=== PATIENT | male | born 1930 | race Caucasian/White ===

== ENCOUNTER 2021-05-21 09:45 | Emergency (ER) | payer OTHER ==
--- OUTSIDE RECORDS SUMMARY | 2021-05-21 09:47 | XMS REPORT | Continuity of Care Document ---
:1930 Author Organization [facility] t Address [address] [place] [address] Care Team Providers Name Role Phone Attending Clinician Unavailable MD SHAHEEN Attending Clinician Unavailable MARLEEN Attending Clinician Unavailable ESSENCE Attending Clinician Unavailable MD SCOUT Attending Clinician Unavailable LORRAINE Attending Clinician Unavailable MARIJA Attending Clinician Unavailable MD CICI Attending Clinician Unavailable ALYSSA Attending Clinician Unavailable CONSTANCE Attending Clinician Unavailable NJ Attending Clinician Unavailable JOIE Attending Clinician Unavailable RASHID Attending Clinician Unavailable Admitting Clinician Unavailable MD SUMIT SALAS Admitting Clinician Unavailable CHIP Admitting Clinician Unavailable Admitting Clinician Unavailable MD CICI Admitting Clinician Unavailable MARGI Admitting Clinician Unavailable Problems This patient has no known problems. Allergies, Adverse Reactions, Alerts This patient has no known allergies or adverse reactions. Medications This patient has no known medications. Procedures This patient has no known procedures. Encounters Start End Encounter Admission Attending Care Care Encounter Source Date/Time Date/Time Type Type Clinicians Facility Department ID 2021-05-14 2021-05-17 [place] [id number] [place] 00:00:00 00:00:00 SIDRAH 872 Method i 2021-05-13 2021-05-13 Emergency RIVENES, [place] [id number] [place] 00:00:00 00:00:00 CARLOS 036 Method i 2021-05-05 2021-05-12 Inpatient LAEEQ, [facility] [id number] [place] 00:00:00 00:00:00 JACQUELINE 274 Method i 2021-04-20 2021-04-20 Outpatient [facility] [id number] [place] 00:00:00 00:00:00 RENATO 241 Method i 2021-04-20 2021-04-20 Outpatient PRATH, [facility] [id number] [place] 00:00:00 00:00:00 RENATO 877 Method i 2021-04-13 2021-04-17 Inpatient NANGIA, [facility] [id number] [place] 00:00:00 00:00:00 CHIP 733 Method i 2021-03-29 2021-03-29 Outpatient SAIKIA, [facility] [id number] [place] 00:00:00 00:00:00 DAVID 550 [facility] [place] 2021-03-25 2021-03-25 Outpatient [facility] [id number] [place] 00:00:00 00:00:00 951 Method i 2021-03-22 2021-03-22 Outpatient CONSTANCE, [facility] [id number] [place] 00:00:00 00:00:00 BHUMIKA 589 Method i 2021-03-10 2021-03-18 Inpatient LAEEQ, [facility] 064 [id number] [place] 00:00:00 00:00:00 JACQUELINE 870 Method i 2021-02-20 2021-02-21 Emergency GUHAROY, [facility] [id number] [place] 00:00:00 00:00:00 RAJEEB 178 Method i 2021-01-26 2021-01-26 Outpatient SAIKIA, [facility] [id number] [place] 00:00:00 00:00:00 DAVID 589 Meth[address] [place] 2020-09-18 2020-09-18 Outpatient SAIKIA, [facility] [id number] [place] 00:00:00 00:00:00 DAVID 079 Metho di 2020-08-12 2020-08-12 Outpatient SAIKIA, [facility] [id number] [place] 00:00:00 00:00:00 DAVID 551 Metho di 2020-05-08 2020-05-08 Outpatient SAIKIA, [facility] [id number] [place] 00:00:00 00:00:00 DAVID 294 Metho di 2020-05-07 2020-05-07 Outpatient LIMAR-TROUT [facility] [id number] [place] 00:00:00 00:00:00 MAN, 781 Method i FALANDA 2020-04-27 2020-04-27 Outpatient SAIKIA, [facility] [id number] [place] 00:00:00 00:00:[address] DAVDI [address] 2020-04-27 2020-04-27 Outpatient SAIKIA, [facility] [id number] [place] 00:00:00 00:00:00 DAVID 957 Metho di 2020-04-27 2020-04-27 Outpatient SAIKIA, [facility] [id number] [place] 00:00:00 00:00:00 DAVID 953 Metho di 2020-04-27 2020-04-27 Outpatient SAIKIA, [facility] [id number] [place] 00:00:00 00:00:00 DAVID 966 Metho di 2020-04-27 2020-04-27 Outpatient SAIKIA, [facility] [id number] [place] 00:00:00 00:00:00 DAVID 955 Metho di 2020-04-27 2020-04-27 Outpatient SAIKIA, [facility] [id number] [place] 00:00:00 00:00:00 DAVID 962 Metho di 2020-03-27 2020-03-27 Outpatient SAIKIA, [facility] [id number] [place] 00:00:00 00:00:00 DAVID 236 Metho di 2020-03-03 2020-03-03 Outpatient LIMAR-TROUT [facility] [id number] [place] 00:00:00 00:00:00 MAN, 096 Method i FALANDA 2020-01-29 2020-01-29 Outpatient LIMAR-TROUT [facility] [id number] [place] 00:00:00 00:00:00 MAN, 767 Method i FALANDA 2020-01-23 2020-01-23 Outpatient LIMAR-TROUT [facility] [id number] [place] 00:00:00 00:00:00 MAN, 122 Method i FALANDA 2019-03-18 2019-03-18 Outpatient ZO MIKE [facility] [id number] [place] 00:00:00 00:00:[address] Results Test Description Test Time Test Comments Results Result Comments Source SARS-CoV-2 (COVID-19) RNA [Presence] in Respiratory sp ecimen by 2021-05-15 06:34:56 DIANA with probe detection Test Item Value Reference Range Interpretation Comme nts SARS-CoV-2 (COVID-19) RNA [Presence] in Respiratory Not detected No t-Detected specimen by DIANA with probe detection (test code = 92400-2) Whether patient is employed in a healthcare setting (test code = 00809-3) Whether the patient has symptoms related to condition of interest (test code = 24248-6) Patient was hospitalized because of this condition (test code = 86965-9) Whether the patient was admitted to intensive care unit (ICU) for condition of interest (test code = 54193-5) Whether patient resides in a congregate care setting (test code = 57481-5) SARS-CoV-2 (COVID-19) RNA [Presence] in Respiratory specimen by DIANA with probe [id number] 08:41:34 Test Item Value Reference Range Interpretation Comments SARS-CoV-2 (COVID-19) RNA Not detected Not-Detected [Presence] in Respiratory specimen by DIANA with probe detection (test code = 50807-4) Whether patient is employed in a healthcare setting (test code = 79166-2) Whether the patient has symptoms related to condition of interest (test code = 94813-1) Patient was hospitalized because of this condition (test code = 52210-4) Whether the patient was admitted to intensive care unit (ICU) for condition of interest (test code = 33080-7) Whether patient resides in a congregate care setting (test code = 95668-8) SARS-CoV-2 (COVID-19) RNA [Presence] in Respiratory specimen by DIANA with probe [id number] 20:35:23 Test Item Value Reference Range Interpretation Comments SARS-CoV-2 (COVID-19) RNA Not detected Not-Detected [Presence] in Respiratory specimen by DIANA with probe detection (test code = 09038-4) Whether patient is employed in a healthcare setting (test code = 55283-3) Whether the patient has symptoms related to condition of interest (test code = 75470-9) Patient was hospitalized because of this condition (test code = 97040-8) Whether the patient was admitted to intensive care unit (ICU) for condition of interest (test code = 23895-4) Whether patient resides in a congregate care setting (test code = 56628-7) SARS-CoV-2 (COVID-19) RNA [Presence] in Respiratory specimen by DIANA with probe [id number] 01:19:14 Test Item Value Reference Range Interpretation Comments SARS-CoV-2 (COVID-19) RNA Not detected Not-Detected [Presence] in Respiratory specimen by DIANA with probe detection (test code = 83881-9) Whether patient is employed in a healthcare setting (test code = 50616-3) Whether the patient has symptoms related to condition of interest (test code = 05211-8) Patient was hospitalized because of this condition (test code = 28330-5) Whether the patient was admitted to intensive care unit (ICU) for condition of interest (test code = 80247-8) Whether patient resides in a congregate care setting (test code = 64126-9)
[2021-05-21 14:35] LABS: Absolute Lymphocytes (CBC) 1.7 K/uL (0.7-4.9); Hematocrit 29.1 % (39.6-49.0); Lymphocytes % 14.9 % (15.3-44.8); MPV 7.2 fL (7.6-11.3); RBC Red Blood Cell Count 3.43 M/uL (4.33-5.43)
[2021-05-21 14:39] LABS: Protime INR 1.14
[2021-05-21 14:53] LABS: Potassium 4.3 mmol/L (3.5-5.1)
--- NOTE | 2021-05-21 19:44 | RAD REPORT ---
EXAM DESCRIPTION: RAD - Chest Single View - 05/21/2021 7:12 pm CLINICAL HISTORY: DYSPNEA COMPARISON: December 2012 TECHNIQUE: AP portable chest image was obtained 05/21/2021 7:12 pm . FINDINGS: No focal mass or consolidation. Interstitial markings are slightly more prominent than the prior study. This is probably progressive interstitial disease over this long interval. Minimal trell a or infiltrate is possible. Sternotomy wires and left atrial appendage closure device have been placed since the prior study. Hea rt and vasculature are normal. No measurable pleural effusion and no pneumothorax. No acute bony abno rmality seen. No acute aortic findings suspected. IMPRESSION: No focal lung parenchymal process. No significant failure or volume overload. Interstitial markings are slightly more pronounced than seen in 2013 probably chronic progressive dis ease. Minimal edema or infiltrate cannot be excluded.
[2021-05-21 22:17] LABS: NT PRO-BNP 3699 pg/mL (<450); Troponin (Emerg Dept Use Only) < 0.02 ng/mL (0.0-0.045)
[2021-05-21 22:36] LABS: SARS-COV-2 RT PCR NEGATIVE (NEGATIVE)
--- NOTE | 2021-05-21 23:44 | EDPHYS ---
Physician Documentation [facility] Name: Ramu Gamboa Age: 89 yrs Sex: Male : 1930 Arrival Date: 05/21/2021 Time: 09:52 Bed 6 Private MD: ED Physician Osorio Vu HPI: 05/21 18:58 This 89 yrs old Male presents to ER via Wheelchair with complaints of Shortness of rn breath, Lethargic- Cancer PT. 18:58 Family reports patient with history of bladder cancer with daily bladder irrigation rn that has blood in it, this has been an ongoing thing, day before Jodie required a blood transfusion for this, and states he is getting tired and fatigued similar to Jodie Hernandez. They are here to recheck his hemoglobin. Also reports increased shortness of breath over the last week.. Onset: The symptoms/episode began/occurred 1 week(s) ago. Severity of symptoms: At their worst the symptoms were moderate in the emergency department the symptoms are unchanged. The patient has experienced a previous episode. The patient has been recently seen by a physician:. Historical: - Allergies: 11:02 Darvon; eo2 - PMHx: 11:02 Hypertensive disorder; bladder cancer; TIA; eo2 - PSHx: 11:02 triple bypass; eo2 - Immunization history:: Adult Immunizations up to date, Client reports having NOT received the Covid vaccine. Flu vaccine is not up to date. - Social history:: Smoking status: Smoking status: Patient denies any tobacco usage or history of. - Family history:: not pertinent. - Hospitalizations: : Patient was recently seen at. ROS: 18:58 Constitutional: Negative for fever, chills Eyes: Negative for injury, pain, redness, rn and discharge, Cardiovascular: Negative for chest pain, palpitations, and edema, Respiratory: Positive for shortness of breath Abdomen/GI: Negative for abdominal pain, nausea, vomiting, diarrhea, and constipation, : Positive for hematuria and indwelling Roth catheter MS/Extremity: Negative for injury and deformity, Skin: Negative for injury, rash, and discoloration, Neuro: Positive for generalized weakness Exam: 18:58 Constitutional: Thin male, no acute distress with mild tachypnea Head/Face: rn Normocephalic, atraumatic. Eyes: Periorbital areas with no swelling, redness, or edema. ENT: Dry mucous membranes, no stridor Cardiovascular: Regular rate and rhythm. No pulse deficits. Respiratory: Mild tachypnea, no retractions Abdomen/GI: Soft, nontender Skin: Warm, dry, no cellulitis MS/ Extremity: Pulses equal, no cyanosis. Neurovascular intact. Full, normal range of motion. Equal circumference. Neuro: Awake and alert, GCS 15, moves all 4 extremities with equal strength, sensation intact. Vital Signs: 10:55 BP 130 / 48; Pulse 57; Resp 15; Temp 97.9; Pulse Ox 96% ; Weight 63.5 kg; Height 5 ft. eo2 8 in. (172.72 cm); Pain 0/10; 18:50 BP 162 / 64; Pulse 68; Resp 15; Temp 98.0; Pulse Ox 100% ; jl7 10:55 Body Mass Index 21.29 (63.50 kg, 172.72 cm) eo2 MDM: 18:18 Patient medically screened. rn 19:05 Transition of care: After a detail discussion of the patient's case, care is rn transferred to Osorio Vu MD. 23:36 Differential Diagnosis CHF exacerbation, pneumonia, viral syndrome. Data reviewed: [facility] vital signs, nurses notes, old medical records, lab test result(s), cardiac enzymes, CBC, electrolytes, urinalysis, EKG, radiologic studies, plain films. Data interpreted: Pulse oximetry: on room air is 100 %. Interpretation: normal. Counseling: I had a detailed discussion with the patient and/or guardian regarding: the historical points, exam findings, and any diagnostic results supporting the discharge/admit diagnosis, the presence of at least one elevated blood pressure reading (>120/80) during this emergency department visit, lab results, radiology results, the need for further work-up and treatment in the hospital. Response to treatment: the patient's symptoms have resolved after treatment, the patient's blood pressure is in an acceptable range, mental status has returned to baseline, the patient no longer shows bradycardia, the patient is not short of breath, the patient is not tachycardic, the patient's pain is gone, the patient's temperature has normalized. Refusal of service: The patient/guardian displays adequate decision making capability and despite a detailed discussion of alternatives, benefits, risks, and consequences refuses: CT Scan, Medications. ED course: Feels better, no acute distress, vital signs stable, no focal neurological deficits. No chest pain, shortness of breath, headache, nausea, vomiting, dizziness, numbness/tingling, lethargy, or weakness. Discussed all test results and findings with the patient recommended for testing including possible CT scans, medication, and admission for observation. Patient declined admission and request to be discharged from the ED at this time and will leave AGAINST MEDICAL ADVICE. Explained possibility of permanent disability and/or if serious condition is present and goes untreated. He verbalized that he understood this information is presented. Will follow up with his doctor in the next 2 days but agrees to return to ED if symptoms worsen or other urgent concerns.. 05/21 11:54 Order name: CBC with Diff; Complete Time: 16:18 05/21 11:54 Order name: Basic Metabolic Panel; Complete Time: 16:18 05/21 11:54 Order name: Protime (+inr); Complete Time: 16:18 05/21 11:54 Order name: Ptt, Activated; Complete Time: 16:18 05/21 11:54 Order name: IV Start; Complete Time: 14:47 05/21 18:37 Order name: Troponin (emerg Dept Use Only); Complete Time: 22:50 05/21 18:37 Order name: BNP; Complete Time: 22:50 05/21 18:37 Order name: Procalcitonin; Complete Time: 22:50 05/21 18:37 Order name: Lactate; Complete Time: 22:50 05/21 18:37 Order name: XRAY Chest (1 view); Complete Time: 19:59 05/21 18:37 Order name: COVID-19/FLU A+B (Document "Date of Onset" if Symptomatic); Complete Time: rn 22:50 05/21 23:09 Order name: EKG; Complete Time: 23:09 [facility] 05/21 23:09 Order name: EKG - Nurse/Tech [facility] Administered Medications: No medications were administered Disposition Summary: 05/21/21 23:43 Left Against Medical Advice Location: Home [facility] Problem: an acute exacerbation [facility] Symptoms: have improved [facility] Condition: Stable [facility] Diagnosis - Chronic combined systolic (congestive) and diastolic (congestive) heart failure 7 - Headache 7 - Other malaise and fatigue mh7 - Chronic renal failure mh7 - Bladder cancer 7 Followup: [facility] - With: Private Physician - When: 1 - 2 days - Reason: Worsening of condition, Recheck today's complaints, Continuance of care, Re-evaluation by your physician Followup: [facility] - With: Nixon Joel MD - When: 1 - 2 days - Reason: Worsening of condition, Recheck today's complaints Discharge Instructions: - Discharge Summary Sheet 7 - Chronic Kidney Disease, Adult, Sbgz-xo-Eqvc 7 - General Headache Without Cause, Japn-he-Zwbf 7 - Heart Failure, Diagnosis, Kftw-gk-Panr 7 - Heart Failure, Self Care, Uxtk-sk-Heig [facility] Signatures: Dispatcher [employer] EDPepe Roberts MD MD rn Holmes, Maurice, MD MD [facility] Annmarie Evans RN RN eo2 Corrections: (The following items were deleted from the chart) 18:55 11:54 Urine Dipstick-Ancillary ordered. rn alber 19:00 11:54 UA MICROSCOPIC+U.LAB.BRZ ordered. EDMS EDMS 19:01 11:54 Urine Culture+BA.LAB.BRZ ordered. EDMS EDMS
--- NOTE | 2021-05-21 23:44 | ER ---
Nurse's Notes [facility] Name: Ramu Gamboa Age: 89 yrs Sex: Male : 1930 Arrival Date: 05/21/2021 Time: 09:52 Bed 6 Private MD: Diagnosis: Chronic combined systolic (congestive) and diastolic (congestive) heart failure;Headache;Other malaise and fatigue;Chronic renal failure;Bladder cancer Presentation: 05/21 10:55 Chief complaint: Patient states: SOB and weakness worsened this morning. Pt noted with eo2 urinary catheter, reports diagnosis of bladder CA in February 2021, gets bladder irrigation done 2-3 times a day at home. Dr. Dobbins oncologist at [facility]. Pt presently denies CP, per family pt had CP last week, was taken to [facility], had blood transfusion. Pt expresses concern for low hemoglobin. Chief complaint:. Coronavirus screen: Vaccine status: Patient reports being unvaccinated. Client denies travel out of the [place] in the last 14 days. Ebola Screen: Patient negative for fever greater than or equal to 101.5 degrees Fahrenheit, and additional compatible Ebola Virus Disease symptoms Patient denies exposure to infectious person. Patient denies travel to an Ebola-affected area in the 21 days before illness onset. No symptoms or risks identified at this time. Initial Sepsis Screen: Does the patient meet any 2 criteria? No. Patient's initial sepsis screen is negative. Does the patient have a suspected source of infection? No. Patient's initial sepsis screen is negative. Risk Assessment: Do you want to hurt yourself or someone else? Patient reports no desire to harm self or others. Onset of symptoms is unknown. 10:55 Method Of Arrival: Wheelchair eo2 10:55 Acuity: JUDITH 2 eo2 Triage Assessment: 11:02 Headache History: Denies prior headaches. General: Appears in no apparent distress. eo2 Behavior is calm, cooperative. Pain: Denies pain. Neuro: Reports weakness. Historical: - Allergies: 11:02 Darvon; eo2 - PMHx: 11:02 Hypertensive disorder; bladder cancer; TIA; eo2 - PSHx: 11:02 triple bypass; eo2 - Immunization history:: Adult Immunizations up to date, Client reports having NOT received the Covid vaccine. Flu vaccine is not up to date. - Social history:: Smoking status: Smoking status: Patient denies any tobacco usage or history of. - Family history:: not pertinent. - Hospitalizations: : Patient was recently seen at. Screenin:52 Abuse screen: Denies threats or abuse. Denies injuries from another. Nutritional jl7 screening: No deficits noted. Tuberculosis screening: No symptoms or risk factors identified. Fall Risk IV access (20 points). Total Davenport Fall Scale indicates No Risk (0-24 pts). Assessment: 18:50 General: Appears in no apparent distress. uncomfortable, Behavior is calm, cooperative, jl7 appropriate for age. Pain: Denies pain. Neuro: Level of Consciousness is awake, alert, obeys commands, Oriented to person, place, time, situation. Cardiovascular: Patient's skin is warm and dry. Respiratory: Airway is patent Respiratory effort is even, unlabored, Respiratory pattern is regular, symmetrical. Derm: Skin is pink, warm \T\ dry. Vital Signs: 10:55 BP 130 / 48; Pulse 57; Resp 15; Temp 97.9; Pulse Ox 96% ; Weight 63.5 kg; Height 5 ft. eo2 8 in. (172.72 cm); Pain 0/10; 18:50 BP 162 / 64; Pulse 68; Resp 15; Temp 98.0; Pulse Ox 100% ; jl7 10:55 Body Mass Index 21.29 (63.50 kg, 172.72 cm) eo2 ED Course: 09:52 Patient arrived in ED. ds1 11:02 Triage completed. eo2 14:25 Initial lab(s) drawn, by me, sent to lab. Inserted saline lock: 22 gauge in right dh3 antecubital area, using aseptic technique. Blood collected. 18:18 Pepe Langford MD is Attending Physician. rn 18:46 Pilar Basurto RN is Primary Nurse. jl7 18:52 Patient has correct armband on for positive identification. Placed in gown. Bed in low jl7 position. Call light in reach. Side rails up X 1. Pulse ox on. NIBP on. Warm blanket given. 18:53 Arm band placed on right wrist. jl7 19:05 Attending Physician role handed off by Pepe Langford MD [facility] 19:05 Osorio Vu MD is Attending Physician. mh7 19:12 XRAY Chest (1 view) In Process Unspecified. EDMS 23:41 Nixon Joel MD is Referral Physician. [facility] Administered Medications: No medications were administered Outcome: 05/22 00:03 Patient left the ED. bb Signatures: Dispatcher [employer] EDOH Cass Abreu ds1 Cherelle Mendiola RN RN bb Pepe Langford MD MD rn Leal, Jahala, RN RN 7 Carlene Cm 3 Osorio Vu MD MD 7 Annmarie Evans RN RN eo2
[2021-05-22 00:38] VITALS: BP 162/64; TEMP 98; O2SAT 100
== END 2021-05-22 00:03 | disposition left against medical advice (07) ==
LOC: ER 09:45
DX: I50.42 Chronic combined systolic (congestive) and diastolic (congestive) heart failure (principal); R53.81 Other malaise; R53.83 Other fatigue; N18.9 Chronic kidney disease, unspecified; C67.9 Malignant neoplasm of bladder, unspecified; Z20.822 Contact with and (suspected) exposure to COVID-19
CPT/HCPCS: 93005 ×2; 85025; 80048; 36415; 85610; 83605; 85730; 84484; 84145; 83880; 0240U; 71045; 99284